=== PATIENT | male | born 1940 | race Caucasian/White ===

== ENCOUNTER → 2016-08-24 | Outpatient (REF) | payer MEDICARE | LOC: M SFHCPLAZ 09:49 | PROVIDERS: ATTEND Family Medicine | DX: E11.40 Type 2 diabetes mellitus with diabetic neuropathy, unspecified (principal) | CPT/HCPCS: 36415; 82043; 83036; G0463 ==

== ENCOUNTER 2016-10-12 22:12 | Inpatient (IN) | payer MEDICARE ==
[~2016-10-12] VITALS: Ht 172.7 cm; Wt 99.9 kg
[2016-10-12] MEDS ORDERED: NITROGLYCERIN 0.4 MG SUBL TABLET As Ordered ONE (22:31)
[2016-10-12] MEDS ORDERED: NITROGLYCERIN 2% OINT 1 GM *U/D* PKT TOP ONE (22:45)
[2016-10-12 22:51] LABS: BASO # 0.1 K/mm3 (0.0-0.2); BASO % 0.4 % (0.0-1.0); EOS # 0.6 K/mm3 (0.0-0.50); EOS % 3.7 % (0.0-3.0); LARGE UNSTAINED CELL # 0.4 K/mm3 (0.0-0.4); LYMPH # 5.1 K/mm3 (1.5-4.5); LYMPH % 31.3 % (24.0-44.0); MEAN CORPUSCULAR HEMOGLOBIN 31.7 pg (27.0-33.0); MEAN CORPUSCULAR VOLUME 99.1 fl (80.0-96.0); MONO # 0.8 K/mm3 (0.0-0.8); MONO % 5.2 % (0.0-5.0); NEUTROPHILS # 8.4 K/mm3 (1.8-7.7); NEUTROPHILS % 56.4 % (36.0-66.0); PLATELET COUNT, AUTOMATED 262 k/mm3 (150-450); RED CELL DISTRIBUTION WIDTH 12.4 % (11.5-14.5)
[2016-10-12 22:53] LABS: WHITE BLOOD COUNT 14.8 K/mm3 (4.0-10.0)
[2016-10-12 22:56] LABS: VENOUS BASE EXCESS -3.2 (-2.0-2.0); VENOUS O2 SATURATION 81.4 % (60.0-80.0); VENOUS PARTIAL PRESSURE CO2 68.5 mmHg (38.0-50.0); VENOUS PARTIAL PRESSURE O2 53.4 mmHg (30.0-50.0); VENOUS STANDARD HCO3 21.4 MEQ/L; VENOUS TOTAL CO2 28.6 MEQ/L (24.0-28.0)
[2016-10-12] MEDS: ALBUTEROL SULFATE 2.5 MG/0.5 ML INH NEB SOLN NEB PRN ×2 (22:58→22:59)
[2016-10-12 23:06] LABS: ALBUMIN 3.9 GM/DL (3.2-5.2); ALBUMIN/GLOBULIN RATIO 1.03 (1.00-1.93); BILIRUBIN,DIRECT 0.1 MG/DL (0.0-0.2); BILIRUBIN,TOTAL 0.3 MG/DL (0.2-1.0); CALCIUM LEVEL 9.3 MG/DL (8.8-10.2); CREATININE FOR GFR 1.74 MG/DL (0.70-1.30); GLOMERULAR FILTRATION RATE 40.7 (>42); POTASSIUM SERUM 4.5 MEQ/L (3.5-5.1); TOTAL PROTEIN 7.7 GM/DL (6.4-8.2)
[2016-10-12] MEDS ORDERED: NITROGLYCERIN 0.3 MG SUBL TAB SL STA (23:25)
[2016-10-13] MEDS ORDERED: methylPREDNISolone INJ 125 MG/2 ML VIAL (J2930) As Ordered ONE (00:09)
[2016-10-13] MEDS ORDERED: methylPREDNISolone INJ 125 MG/2 ML VIAL (J2930) IV ONE (00:15)
[2016-10-13] MEDS ORDERED: ALBUTEROL SULFATE 2.5 MG/0.5 ML INH NEB SOLN NEB PRN (00:30)
[2016-10-13] MEDS ORDERED: ONDANSETRON 4MG/2ML VIAL (J2405) IV PRN (00:30)
[2016-10-13] MEDS ORDERED: BISACODYL 10 MG SUPP PR PRN (00:30)
--- NOTE | 2016-10-13 00:40 | REPUSA ---
CLINICAL HISTORY: Shortness of breath. TECHNIQUE: Multiple axial CT images were obtained through the thorax without IV contrast material. COMMENTS: Mild cardiomegaly. Bilateral peribronchial interstitial thickening. Subsegmental atelectatic changes in the lingula. There is no evidence of pleural or parenchymal-based mass. There are no pleural effusions. There is n o evidence of hilar or mediastinal lymphadenopathy. The heart and great vessels are within normal castillo its. The visualized portions of the liver are of uniform attenuation without mass or defect. There is no i ntra or extrahepatic biliary ductal dilatation. The spleen is unremarkable. The visualized pancreas i s of normal contour and attenuation characteristics. There is no evidence of adrenal mass. The visual ized portions of the kidneys present no abnormalities. The bony structures are free of lytic or blastic lesions. Small sliding-type hernia. IMPRESSION: Bronchitis. Cardiomegaly. Small sliding-type hernia. Constipation. Thank you for your kind referral of this patient.
[2016-10-13] MEDS ORDERED: FUROSEMIDE 100 MG/10 ML VIAL (J1940) IV ONE (01:00)
[2016-10-13] MEDS ORDERED: GLUCAGON FOR INJ 1 MG VIAL (J1610) SC PRN (01:30)
[2016-10-13] MEDS ORDERED: GLUCOSE 4 GM CHEW TABLET PO PRN (01:30)
[2016-10-13] MEDS ORDERED: DEXTROSE 50% 50 ML SYRINGE IV PRN (01:30)
[2016-10-13] MEDS ORDERED: VITA50003 PO (01:51)
[2016-10-13] MEDS ORDERED: LISI-542 PO (01:51)
[2016-10-13] MEDS ORDERED: JANU100T PO (01:51)
[2016-10-13] MEDS ORDERED: ADV250INH INH (01:51)
[2016-10-13] MEDS ORDERED: PROA1AER INH (01:51)
[2016-10-13] MEDS ORDERED: METF1000 PO (01:51)
[2016-10-13] MEDS ORDERED: QUIN40TA5 PO (01:51)
[2016-10-13 02:00] VITALS: BP 134/69
[2016-10-13] MEDS: AUGMENTIN 875 MG TAB PO SCH ×3 (02:32→21:22)
[2016-10-13] MEDS: IPRATROPIUM 0.5MG/ALBUTEROL 2.5MG INH SOL UD 3ML (DUONEB)(J7620) NEB SCH ×3 (03:16→20:00)
[2016-10-13 06:00] VITALS: BP 128/60
[2016-10-13] MEDS: HEPARIN SOD (PORCINE) 5000 UNITS/ML VIAL SC SCH ×3 (06:06→21:23)
[2016-10-13] MEDS: BUDESONIDE 0.5 MG/2 ML INHALATION SUSPENSION INH SCH ×2 (07:56→22:17)
[2016-10-13] MEDS: FORMOTEROL FUMARATE 20 MCG/2 ML INHALATION SOLUTION (PERFOROMIST) INH SCH ×2 (07:56→22:17)
--- NOTE | 2016-10-13 08:14 | REP ---
Portable chest a single AP view the patient upright: Comparison is 10/03/2015. A faintly visible linear density inferiorly in the left lung compatible with discoid atelectasis versus scar, unchanged. Left lung is clear and unchanged. Cardiac size is normal for portable positioning. The patient is rotated slightly. The kristy, mediastinum, bony thorax are unremarkable. Impression: Minor atelectasis versus scar in the lingula, no interval change. Signed by Eleuterio Staton MD 10/13/2016 08:05 A
[2016-10-13] MEDS: PANTOPRAZOLE 40MG TAB (PROTONIX) PO SCH (08:18)
[2016-10-13] MEDS: HumaLOG INSULIN (NovoLOG) PER UNIT SC SCH ×4 (08:18→21:00)
[2016-10-13] MEDS: SENOKOT S TAB PO SCH ×2 (08:19→21:22)
[2016-10-13] MEDS: predniSONE 20 MG TAB PO SCH (08:19)
[2016-10-13] MEDS: LISINOPRIL 5 MG TAB PO SCH (08:19)
--- NOTE | 2016-10-13 09:09 | HPE ---
DATE OF ADMISSION: 10/13/2016 PRIMARY CARE PROVIDER: Dr. Faraz Aldana CHIEF COMPLAINT: Acute onset shortness of breath and chest tightness at around 7:00 p.m. in the evening. PAST MEDICAL HISTORY: 1. Chronic obstructive pulmonary disease (COPD). 2. Diabetes. 3. Gastroesophageal reflux disease. 4. Hypertension. 5. Rosacea. 6. Vitamin D deficiency. 7. Obesity. 8. Chronic kidney disease Stage III. 9. Diabetic neuropathy. HISTORY OF PRESENT ILLNESS: This is a 76-year-old male who was in his usual state of health until this evening. After dinner while he was doing some paperwork he suddenly felt acute shortness of breath and chest tightness behind the sternum. He became very anxious and started hyperventilating so he got into his car on his way to urgent care and stopped at a store en route to get a drink; however, could not make it to the store. He was standing beside his car in the car park hyperventilating. He met one of his acquaintances and he could hardly talk to him so an ambulance was called and he was brought to the emergency room. He did say he had a similar episode two days ago that also started after dinner with sensation of chest tightness and discomfort just behind the sternum followed by shortness of breath. He did take his albuterol inhalers that night which helped, however, he had an uncomfortable night and was having acid reflux and chest discomfort when he was lying down so he spent most of the night in a semi-reclined position. However, the next morning when he woke up, he was fine without any complaints until he had this episode today. The patient has stated that over the past two weeks he has done drastic dietary modification in order to try and lose some weight. He has been eating more of beans and vegetables and he feels that he has been having more of gas and acid reflux. In the emergency department (ED) on presentation, he had a VBG done which showed a pH of 7.20, pCO2 of 68, pO2 of 53. He was hypertensive with a blood pressure of 180/90 and tachycardic with a pulse of 115. He was given two sublingual nitroglycerin without much improvement. After that, he got three nebulizer treatments along with a nitro patch which improved his symptoms dramatically. The patient feels it is the nebulizers which improved his symptoms. At present on my interview, the patient was comfortable, however, was sitting on the side of the bed as he felt that was helping him breathe better. He was talking in full sentences. He denied any chest discomfort or any shortness of breath at this point. He denies any cough or phlegm. He denies any abdominal pain, nausea or vomiting. He denied any fever or chills or any cold or upper respiratory infection like symptoms. PAST SURGICAL HISTORY: Cardiac catheterization about 7 to 8 years ago which did not show any obstruction. ALLERGIES: - ASPIRIN SOCIAL HISTORY: The patient drinks one to two glasses of wine per day. Former smoker, quit more than 10 years ago. Does not abuse any recreational drugs. HOME MEDICATIONS: - Centrum Silver one tablet daily - glipizide 5 mg daily - Januvia 100 mg daily - metformin 1000 mg twice a day - quinapril 40 mg once a day - vitamin D 50,000 units one capsule once a week - ProAir HFA two puffs every 4 hours as needed - Advair Diskus 250/50 one inhalation twice a day - lisinopril 5 mg daily FAMILY HISTORY: Father of prostate cancer. Mother of stroke. Brother alive, unknown medical history. REVIEW OF SYSTEMS: All ten point review of systems are negative except those mentioned in history of present illness. PHYSICAL EXAMINATION: VITAL SIGNS: Blood pressure 144/74. Pulse 102. Respiratory rate 20. Pulse oximetry 92% with 2 liters nasal cannula. Temperature 96.8. GENERAL: Patient awake, alert and oriented times three, sitting up at the edge of the bed in no acute distress. HEENT: Normocephalic, atraumatic. Moist mucous membranes. Anicteric eyes. CHEST: Distant breath sounds. No wheezing or rhonchi. CARDIOVASCULAR: S1, S2, regular. No rub, murmur or gallop. ABDOMEN: Obese, soft, nontender. Bowel sounds present. EXTREMITIES: 1+ bipedal edema. LABORATORY DATA: WBC 14.8, hemoglobin 14.4, and platelets 262. Sodium 142, potassium 4.5, chloride 108, bicarbonate 26, BUN 35, creatinine 1.74, glucose 227, calcium 9.3. Liver function tests are normal. BNP 63.4. TSH 3.2. CT of chest shows bronchitis, cardiomegaly, sliding type hernia, and constipation. ASSESSMENT: This is a 76-year-old male admitted for acute exacerbation of chronic obstructive pulmonary disease, acute bronchitis and possible acute gastroesophageal reflux. PLAN: 1. For COPD exacerbation, will continue with nebulizers and oral steroids. 2. For acute bronchitis, will continue with Augmentin. 3. Possible acute gastroesophageal reflux and CT scan shows has a small sliding type of hernia and patient may have recurrent episodes of acute dyspnea precipitated due to active bronchospasm that might be precipitated by acid reflux. Will continue the patient on pantoprazole twice a day. 4. Diabetes. Will continue with glipizide. Will hold metformin because of chronic kidney disease (CKD). Will monitor finger sticks. 5. CKD Stage III. Will continue to monitor. 6. Deep vein thrombosis prophylaxis has been ordered. 7. Gastrointestinal prophylaxis has been ordered.
[2016-10-13 09:40] LABS: BASO % 0.2 % (0.0-1.0); EOS % 0.2 % (0.0-3.0); LARGE UNSTAINED CELL % 0.3 % (0.0-4.0); LYMPH # 0.6 K/mm3 (1.5-4.5); LYMPH % 5.5 % (24.0-44.0); MEAN CORPUSCULAR HEMOGLOBIN 31.8 pg (27.0-33.0); MEAN CORPUSCULAR HGB CONC 32.2 g/dl (32.0-36.5); MEAN CORPUSCULAR VOLUME 98.9 fl (80.0-96.0); MONO # 0.1 K/mm3 (0.0-0.8); MONO % 1.2 % (0.0-5.0); NEUTROPHILS # 9.2 K/mm3 (1.8-7.7); NEUTROPHILS % 92.6 % (36.0-66.0); PLATELET COUNT, AUTOMATED 225 k/mm3 (150-450); RED CELL DISTRIBUTION WIDTH 12.4 % (11.5-14.5); WHITE BLOOD COUNT 9.9 K/mm3 (4.0-10.0)
[2016-10-13 09:51] LABS: ALBUMIN 3.8 GM/DL (3.2-5.2); ALBUMIN/GLOBULIN RATIO 0.97 (1.00-1.93); BILIRUBIN,TOTAL 0.3 MG/DL (0.2-1.0); CALCIUM LEVEL 9.6 MG/DL (8.8-10.2); CREATININE FOR GFR 2.08 MG/DL (0.70-1.30); GLOMERULAR FILTRATION RATE 33.1 (>42); POTASSIUM SERUM 4.9 MEQ/L (3.5-5.1); TOTAL PROTEIN 7.7 GM/DL (6.4-8.2)
--- NOTE | 2016-10-13 11:20 | IPNPDOC ---
Subjective Date Seen The patient was seen on 10/13/16. Subjective Chief Complaint/HPI Pt without concerns. He feels his resp status is close to baseline. He denies cardiac symptoms this morning. Denies CP/ jaw, back, arm, shoulder pain. Per his HPI and confirmed with pt 2 days ago episode of chest tightness/discomfort assoc with SOB. He assoc with this acid reflux slept in his recliner and woke the following day without symptoms. General: Denies: Fatigue Constitutional: Denies: Chills, Fever Pulmonary: Denies: Cough, Dyspnea Cardiovascular: Denies: Chest Pain, Palpitations Gastrointestinal: Denies: Diarrhea, Nausea, Vomiting Psych: Reports: Mood Normal Objective Physical Examination General Exam: Positive: Alert, No Acute Distress ENT Exam: Positive: Mucous membr. moist/pink Chest Exam: Positive: Clear to auscultation, Normal air movement Heart Exam: Positive: Normal S1, Normal S2, Rate Normal Abdomen Exam: Positive: Normal bowel sounds, Soft, Negative: Tenderness Extremity Exam: Positive: Edema (1 mm pretibial pitting edema) Assessment /Plan Problems (1) Elevated troponin I level Status: Acute Response to Treatment: Worse Problem Specific Plan: Monitor Clinically Problem Text: Trop I 0.02 on admission, 1.00 at 6 AM, ordered repeat now, pt asymptomatic. Allergy listed to ASA, on Heparin 5000 units q8h, now, lisinopril 5 mg, statin. on O2. Transfer to PCU for telemetry, EKG this morning without acute changes, similar c/w last night (2) CKD (chronic kidney disease) stage 3, GFR 30-59 ml/min Status: Chronic Response to Treatment: Stable Problem Specific Plan: Monitor Clinically Problem Text: 2011, Scr 2 appears to be at baseline. (3) COPD exacerbation Status: Acute Response to Treatment: Improving Problem Specific Plan: Monitor Clinically Problem Text: Pt on prednisone 40 mg, Augmentin, resp status stable. Plan/VTE VTE Prophylaxis Ordered?: Yes VS, I&O, 24H, Fishbone Vital Signs/I&O Vital Signs Date Time Temp Pulse Resp B/P Pulse Ox O2 Delivery O2 Flow Rate FiO2 10/13/16 08:19 128/60 10/13/16 06:00 98.8 88 18 93 Nasal Cannula 2.0 I&O- Last 24 Hours up to 6 AM 10/13/16 06:00 Intake Total 540 ml Output Total 0 ml Balance 540 ml Laboratory Data 24H LABS Laboratory Tests 2 10/12/16 22:25: Activated Partial Thromboplast Time 26.8, Aspartate Amino Transf (AST/SGOT) 17, Alanine Aminotransferase (ALT/SGPT) 27, Alkaline Phosphatase 77, Total Bilirubin 0.3, Direct Bilirubin 0.1, Albumin 3.9, Albumin/Globulin Ratio 1.03, Anion Gap 8, B-Type Natriuretic Peptide 63.4, White Blood Count 14.8H, Red Blood Count 4.55, Hemoglobin 14.4, Hematocrit 45.1, Mean Corpuscular Volume 99.1H, Mean Corpuscular Hemoglobin 31.7, Mean Corpuscular Hemoglobin Concent 32.0, Red Cell Distribution Width 12.4, Platelet Count 262, Neutrophils (%) ( Auto) 56.4, Lymphocytes (%) (Auto) 31.3, Monocytes (%) (Auto) 5.2H, Eosinophils (%) (Auto) 3.7H, Basophils (%) (Auto) 0.4, Neutrophils # (Auto) 8.4H, Lymphocytes # (Auto) 5.1H, Monocytes # (Auto) 0.8, Eosinophils # (Auto) 0.6H, Basophils # (Auto) 0.1, Calcium Level 9.3, Creatine Kinase MB 5.1H, Creatine Kinase MB Relative Index 2.75, Glomerular Filtration Rate 40.7L, Large Unclassified Cells # 0.4, Large Unclassified Cells % 3.0, Thyroid Stimulating Hormone (TSH) 3.280, Total Creatine Kinase 185, Total Protein 7.7, Troponin I 0.02 10/12/16 22:50: Blood Gas Bicarbonate Standard 21.4, Venous Blood Base Excess -3.2L, Venous Blood pH 7.205L, Venous Blood Partial Pressure CO2 68.5H, Venous Blood Partial Pressure O2 53.4H, Venous Blood Total Carbon Dioxide 28.6H, Venous Blood HCO3 26.5, Venous Blood Oxygen Saturation 81.4H 10/13/16 05:58: White Blood Count 9.9, Red Blood Count 4.38, Hemoglobin 13.9L, Hematocrit 43.3, Mean Corpuscular Volume 98.9H, Mean Corpuscular Hemoglobin 31.8, Mean Corpuscular Hemoglobin Concent 32.2, Red Cell Distribution Width 12.4, Platelet Count 225, Neutrophils (%) (Auto) 92.6H, Lymphocytes (%) (Auto) 5.5L, Monocytes (%) (Auto) 1.2, Eosinophils (%) (Auto) 0.2, Basophils (%) (Auto) 0.2, Neutrophils # (Auto) 9.2H, Lymphocytes # (Auto) 0.6L, Monocytes # (Auto) 0.1, Eosinophils # (Auto) 0.0, Basophils # (Auto) 0.0, Large Unclassified Cells # 0.0 , Large Unclassified Cells % 0.3 10/13/16 06:00: Aspartate Amino Transf (AST/SGOT) 22, Alanine Aminotransferase (ALT/SGPT) 27, Alkaline Phosphatase 67, Total Bilirubin 0.3, Albumin 3.8, Albumin/Globulin Ratio 0.97L, Anion Gap 13, Calcium Level 9.6, Creatine Kinase MB 7.6H, Creatine Kinase MB Relative Index 3.72, Glomerular Filtration Rate 33.1L, Total Creatine Kinase 204, Total Protein 7.7, Troponin I 1.00#H, Blood Urea Nitrogen 38H, Creatinine 2.08H, Sodium Level 140, Potassium Level 4.9, Chloride Level 104, Carbon Dioxide Level 23 10/13/16 06:39: Bedside Glucose (Misc Panel) 310H CBC/BMP Laboratory Tests 10/12/16 22:25 Red Blood Count 4.55, Mean Corpuscular Volume 99.1 H, Mean Corpuscular Hemoglobin 31.7, Mean Corpuscular Hemoglobin Concent 32.0, Red Cell Distribution Width 12.4, Neutrophils (%) (Auto) 56.4, Lymphocytes (%) (Auto) 31.3, Monocytes (%) (Auto) 5.2 H, Eosinophils (%) (Auto) 3.7 H, Basophils (%) ( Auto) 0.4, Neutrophils # (Auto) 8.4 H, Lymphocytes # (Auto) 5.1 H, Monocytes # ( Auto) 0.8, Eosinophils # (Auto) 0.6 H, Basophils # (Auto) 0.1 10/13/16 05:58 Red Blood Count 4.38, Mean Corpuscular Volume 98.9 H, Mean Corpuscular Hemoglobin 31.8, Mean Corpuscular Hemoglobin Concent 32.2, Red Cell Distribution Width 12.4, Neutrophils (%) (Auto) 92.6 H, Lymphocytes (%) (Auto) 5.5 L, Monocytes (%) (Auto) 1.2, Eosinophils (%) (Auto) 0.2, Basophils (%) (Auto ) 0.2, Neutrophils # (Auto) 9.2 H, Lymphocytes # (Auto) 0.6 L, Monocytes # (Auto ) 0.1, Eosinophils # (Auto) 0.0, Basophils # (Auto) 0.0 10/13/16 06:00 Calcium Level 9.6, Aspartate Amino Transf (AST/SGOT) 22, Alanine Aminotransferase (ALT/SGPT) 27, Total Creatine Kinase 204, Alkaline Phosphatase 67, Total Bilirubin 0.3, Total Protein 7.7, Albumin 3.8 LUZ MARIA LIU PA-C Oct 13, 2016 11:19
[2016-10-13 12:45] VITALS: BP 135/63
--- NOTE | 2016-10-13 15:23 | ECGEPIP ---
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 Electronically Signed On 10-13-2016 15:23:49 EDT by Steve Hull
[2016-10-13 16:00] VITALS: BP 126/58
--- NOTE | 2016-10-13 18:33 | ECGEPIP ---
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
[2016-10-13 20:00] VITALS: BP 127/60
[2016-10-14] VITALS: BP 116/57
[2016-10-14] MEDS: IPRATROPIUM 0.5MG/ALBUTEROL 2.5MG INH SOL UD 3ML (DUONEB)(J7620) NEB SCH ×4 (02:00→20:00)
[2016-10-14 04:00] VITALS: BP 134/63
[2016-10-14 04:50] LABS: BASO % 0.2 % (0.0-1.0); EOS % 0.4 % (0.0-3.0); LARGE UNSTAINED CELL # 0.2 K/mm3 (0.0-0.4); LARGE UNSTAINED CELL % 1.7 % (0.0-4.0); LYMPH % 10.2 % (24.0-44.0); MEAN CORPUSCULAR HEMOGLOBIN 31.8 pg (27.0-33.0); MEAN CORPUSCULAR VOLUME 96.2 fl (80.0-96.0); MONO # 0.6 K/mm3 (0.0-0.8); MONO % 6.1 % (0.0-5.0); NEUTROPHILS % 81.5 % (36.0-66.0); PLATELET COUNT, AUTOMATED 209 k/mm3 (150-450); RED CELL DISTRIBUTION WIDTH 12.4 % (11.5-14.5); WHITE BLOOD COUNT 9.8 K/mm3 (4.0-10.0)
[2016-10-14 05:10] LABS: CALCIUM LEVEL 8.8 MG/DL (8.8-10.2); CREATININE FOR GFR 2.04 MG/DL (0.70-1.30); GLOMERULAR FILTRATION RATE 33.9 (>42); POTASSIUM SERUM 4.6 MEQ/L (3.5-5.1)
[2016-10-14] MEDS: HEPARIN SOD (PORCINE) 5000 UNITS/ML VIAL SC SCH ×3 (05:31→21:08)
[2016-10-14] MEDS: HumaLOG INSULIN (NovoLOG) PER UNIT SC SCH ×4 (06:52→21:08)
[2016-10-14 08:00] VITALS: BP 125/58
[2016-10-14] MEDS: BUDESONIDE 0.5 MG/2 ML INHALATION SUSPENSION INH SCH ×2 (08:06→20:53)
[2016-10-14] MEDS: FORMOTEROL FUMARATE 20 MCG/2 ML INHALATION SOLUTION (PERFOROMIST) INH SCH ×2 (08:06→20:53)
[2016-10-14] MEDS: AUGMENTIN 875 MG TAB PO SCH ×2 (08:12→21:08)
[2016-10-14] MEDS: LISINOPRIL 5 MG TAB PO SCH (08:13)
[2016-10-14] MEDS: PANTOPRAZOLE 40MG TAB (PROTONIX) PO SCH (08:13)
[2016-10-14] MEDS: predniSONE 20 MG TAB PO SCH (08:13)
[2016-10-14] MEDS: SENOKOT S TAB PO SCH ×2 (08:13→21:08)
--- NOTE | 2016-10-14 09:35 | IPNPDOC ---
Subjective Date Seen The patient was seen on 10/14/16. Subjective Chief Complaint/HPI Pt this morning without new concerns. He is eager to get home. He is moving about his room without difficulty. He denies CP, jaw pain, shoulder pain. Breathing is better. He has been weaned off O2. General: Denies: Fatigue Constitutional: Denies: Chills, Fever Pulmonary: Reports: Dyspnea, Denies: Cough Cardiovascular: Denies: Chest Pain, Palpitations Gastrointestinal: Denies: Diarrhea, Nausea, Vomiting Psych: Reports: Mood Normal Objective Physical Examination General Exam: Positive: Alert, No Acute Distress ENT Exam: Positive: Mucous membr. moist/pink Chest Exam: Positive: Clear to auscultation, Normal air movement Heart Exam: Positive: Normal S1, Normal S2, Rate Normal Abdomen Exam: Positive: Normal bowel sounds, Soft, Negative: Tenderness Extremity Exam: Positive: Edema (1 mm pretibial pitting edema) Assessment /Plan Problems (1) Elevated troponin I level Status: Acute Response to Treatment: Worse Problem Specific Plan: Monitor Clinically Problem Text: 10/16 Trop this morning 1.28, CKMB 8.1, Cont with Heparin, will add Plavix per Dr Goldstein who will see the patient later. 10/13 Trop I 0.02 on admission, 1.00 at 6 AM, ordered repeat now, pt asymptomatic. Allergy listed to ASA, on Heparin 5000 units q8h, now, lisinopril 5 mg, statin. on O2. Transfer to PCU for telemetry, EKG this morning without acute changes, similar c/w last night (2) CKD (chronic kidney disease) stage 3, GFR 30-59 ml/min Status: Chronic Response to Treatment: Stable Problem Specific Plan: Monitor Clinically Problem Text: 2010, Scr 2 appears to be at baseline. (3) COPD exacerbation Status: Acute Response to Treatment: Improving Problem Specific Plan: Monitor Clinically Problem Text: Pt on prednisone 40 mg, Augmentin, resp status stable. Plan/VTE VTE Prophylaxis Ordered?: Yes VS, I&O, 24H, Fishbone Vital Signs/I&O Vital Signs Date Time Temp Pulse Resp B/P Pulse Ox O2 Delivery O2 Flow Rate FiO2 10/14/16 08:13 125/58 10/14/16 08:00 Room Air 10/14/16 08:00 96.7 73 20 94 10/13/16 09:00 2.0 I&O- Last 24 Hours up to 6 AM 10/14/16 06:00 Intake Total 900 ml Output Total 900 ml Balance 0 ml Laboratory Data 24H LABS Laboratory Tests 2 10/13/16 11:20: Creatine Kinase MB 7.1H, Creatine Kinase MB Relative Index 3.62, Total Creatine Kinase 196, Troponin I 1.02H 10/13/16 11:44: Bedside Glucose (Misc Panel) 388H 10/13/16 17:24: Creatine Kinase MB 7.4H, Creatine Kinase MB Relative Index 2.49, Total Creatine Kinase 297, Troponin I 1.00H 10/13/16 17:33: Bedside Glucose (Misc Panel) 256H 10/13/16 21:17: Bedside Glucose (Misc Panel) 224H 10/13/16 23:34: Creatine Kinase MB 7.3H, Creatine Kinase MB Relative Index 1.37, Total Creatine Kinase 531#H, Troponin I 1.04H 10/14/16 04:26: Creatine Kinase MB 8.1H, Creatine Kinase MB Relative Index 1.52, Total Creatine Kinase 532H, Troponin I 1.28#H, Anion Gap 8, White Blood Count 9.8, Red Blood Count 4.38, Hemoglobin 13.9L, Hematocrit 42.1, Mean Corpuscular Volume 96.2H, Mean Corpuscular Hemoglobin 31.8, Mean Corpuscular Hemoglobin Concent 33.0, Red Cell Distribution Width 12.4, Platelet Count 209, Neutrophils (%) (Auto) 81.5H, Lymphocytes (%) (Auto) 10.2L, Monocytes (%) (Auto) 6.1H, Eosinophils (%) (Auto) 0.4, Basophils (%) (Auto) 0.2, Neutrophils # (Auto) 8.0H, Lymphocytes # (Auto) 1.0L, Monocytes # (Auto) 0.6, Eosinophils # (Auto) 0.0, Basophils # (Auto) 0.0, Blood Urea Nitrogen 48H, Creatinine 2.04H, Sodium Level 140, Potassium Level 4.6 , Chloride Level 106, Carbon Dioxide Level 26, Calcium Level 8.8, Glomerular Filtration Rate 33.9L, Large Unclassified Cells # 0.2, Large Unclassified Cells % 1.7 10/14/16 06:46: Bedside Glucose (Misc Panel) 202H CBC/BMP Laboratory Tests 10/14/16 04:26 Calcium Level 8.8, Total Creatine Kinase 532 H, Red Blood Count 4.38, Mean Corpuscular Volume 96.2 H, Mean Corpuscular Hemoglobin 31.8, Mean Corpuscular Hemoglobin Concent 33.0, Red Cell Distribution Width 12.4, Neutrophils (%) (Auto ) 81.5 H, Lymphocytes (%) (Auto) 10.2 L, Monocytes (%) (Auto) 6.1 H, Eosinophils (%) (Auto) 0.4, Basophils (%) (Auto) 0.2, Neutrophils # (Auto) 8.0 H , Lymphocytes # (Auto) 1.0 L, Monocytes # (Auto) 0.6, Eosinophils # (Auto) 0.0, Basophils # (Auto) 0.0 LUZ MARIA LIU PA-C Oct 14, 2016 09:35
[2016-10-14] MEDS: CLOPIDOGREL 75 MG TAB PO SCH (10:26)
--- NOTE | 2016-10-14 17:57 | ECHO ---
DATE OF PROCEDURE: 10/14/2016 AGE: 75 GENDER: Male HEIGHT: 68 inches WEIGHT: 222 pounds BODY SURFACE AREA: 2.14 m2. Inpatient intensive care unit (ICU) Room 3204. REFERRING PHYSICIAN: Dr. Trinh Aldana. INDICATION: Dyspnea. MEASUREMENTS: 2-D measurements: RV - 4.4 cm LV - 5.5 cm Septum 1.3 cm Posterior wall 1.3 cm Aortic root 3.6 cm LA - 3.4 cm LVEF- 60-65% Doppler measurements: AV - 1.7 m/sec LVOT - 1.1 m/sec LVOT diameter 2.1 cm MVE - 59 A- 74 E/E ratio 0.8 Early mitral deceleration time: 264 m/s E-Prime 5 A-Prime 8 E/E Prime ratio 11.6 PV - 1.0 m/sec Pulmonary artery acceleration time 109 milliseconds RVSP - 35 mmHg IVC - 1.5 cm COMMENTS: Normal sinus rhythm without intraventricular conduction disturbance. Technically challenging study in light of the patient's body habitus but diagnostically useful information was still obtained. Moderately dilated left atrium with left ventricle upper limits of normal in size. The right ventricle is at least mildly dilated as was the right atrium. Left ventricle (LV) wall thickness was mildly increased symmetrically on real time imaging from the parasternal and apical projections, wall motion was symmetrical and normal to hyperkinetic. Normal appearing mitral valvular apparatus and leaflet excursion with no posterior systolic buckling. Three equal size aortic cusps with mild to moderate thickening of cusp edges but adequate cusp separation. Normal aortic root size. No apparent intracardiac mass or pericardial effusion. Color flow Doppler study taken from the parasternal and apical projection showed very mild tricuspid, but no apparent aortic or mitral insufficiency. Guided continuous wave Doppler of his aortic valve showed a normal peak systolic velocity against left ventricle (LV) outflow tract obstruction. Pulsed and continuous wave Doppler of his LV inflow tract taken from the apical four-chamber projection showed normal diastolic filling velocities against mitral stenosis. There was more prominently diastolic/atrial dependent filling pattern. Diastolic dysfunction was further confirmed by a prolonged early mitral deceleration time and tissue Doppler of his mitral annulus. Current estimated mean left atrial pressure however was upper limits of normal at 12-14 mmHg. Pulsed and continuous wave Doppler of his pulmonary trunk showed a normal peak systolic velocity against right ventricle (RV) outflow tract obstruction. His pulmonary artery acceleration time was slightly abbreviated suggestive of a elevated pulmonary vascular resistance. Guided continuous wave Doppler of his tricuspid valve allowed our estimation of his right ventricular systolic pressure (mildly increased). His inferior vena cava was of normal size against an elevated central venous pressure. CONCLUSIONS: Technically difficult study. Mild concentric left ventricular hypertrophy with preserved systolic function. Moderately dilated left atrium with Doppler evidence of an impairment of LV diastolic function but current estimated mean left atrial pressure upper limits of normal. Mildly dilated right ventricle with Doppler evidence of at least mild pulmonary hypertension. Mildly dilated right atrium but normal inferior vena cava size. Against a currently elevated central venous pressure. Moderate aortic valvular sclerosis without functional valvular abnormality.
[2016-10-14] MEDS ORDERED: CLOPIDOGREL 75 MG TAB PO ONE (19:00)
--- NOTE | 2016-10-14 19:30 | CR ---
DATE OF CONSULTATION: 10/14/2016 REFERRING PROVIDER: TIMO Lam INDICATION: Elevated troponin. HISTORY OF PRESENT ILLNESS: Mr. MANNING was previously unknown to me. He is very pleasant 76-year-old man who came to [facility] on 10/12/2016. On the particular day, he developed rather sudden onset of symptoms that included retrosternal chest pressure, it was localized to one small area behind lower sternum without any radiation but with associated severe dyspnea. He initially waited about an hour or so but when the symptoms were not subsiding, quite to the contrary, he drove himself to the Urgent Care that was closed. He then wanted to drive to [facility] but on the way there he got so dizzy and lightheaded that he felt he was not able to drive. Consequently, he pulled over to the parking lot and by coincidence was seen by one of the friends of his son and when he came over and saw the patient was in distress, the ambulance was called and he was brought to [facility] Emergency Room for further evaluation. On arrival there, he was quite hypertensive and tachycardic. He received nitroglycerin en route to the hospital, which brought to some but certainly not complete relief. Eventually though, his symptoms markedly improved after administration of some bronchodilators and more NTG and Solu-Medrol. Initially, he was treated as chronic obstructive pulmonary disease (COPD) exacerbation but then his troponin became mildly elevated and the level continues to rise. I was asked by TIMO Lam to see the patient in consultation. At the time of my dictation, the patient is comfortable. He cannot exactly state how long his initial chest discomfort lasted but it clearly was at least an hour or two. I reviewed the hospital record and the initial ECG from emergency room reveals approximately [address]-segment depression in inferior leads, it is from 10/12/2016 at 2240 hours. It is relatively poor quality EKG but I think that the ST-segment depression is quite convincing. The second one at 2244 hours is already less prominent and the following day his ST-segment is basically back to normal. The patient tells me that since resolution of this symptoms, there has been no recurrence and he has been feeling well. The patient does not have any history of coronary artery disease. He underwent cardiac catheterization approximately 15 years ago and reportedly had some minor blockage in one of the arteries. He did have a nuclear stress test in our office in September 2014. He was able to exercise only for 6 METs, but the perfusion images were normal and left ventricle ejection fraction was calculated at 59%. At his baseline, he is quite active. He tells me that he quite frequently walks on a treadmill at 2.5 miles an hour with 3% incline and has no trouble doing so for about 45 minutes. PAST MEDICAL HISTORY 1. Type 2 diabetes of many years. 2. Obesity. 3. COPD 4. Gastroesophageal reflux disease (GERD). 5. Hypertension. 6. Chronic renal insufficiency stage III. 7. Diabetic neuropathy. SURGICAL HISTORY: Negative but for cardiac catheterization. ALLERGY: He reports allergy to ASPIRIN that is causing anaphylaxis. SOCIAL HISTORY: The patient is . He was a total of three times and had three children of his own, several step children. He does have one or two drinks a day, quit smoking 20 years ago but smoked intermittently for about three decades and occasionally very heavy. No history of drug use. OUTPATIENT MEDICATIONS: - albuterol as needed - vitamin D - quinapril 40 mg a day - metformin 1 gram twice a day - Januvia 100 mg a day - ProAir two puffs every 4 hours as needed - Advair Diskus FAMILY HISTORY: Negative for coronary artery disease in first-degree relatives. His father of prostate cancer and mother had stroke. REVIEW OF SYSTEMS: He denies any recent fever, chills, nausea, vomiting, diarrhea. He denies any prior chest discomfort. No history of syncope. No history of palpitations. No abdominal pain, nausea or vomiting. No peripheral edema. No skin lesions. No history of gastrointestinal or other bleeding. PHYSICAL EXAMINATION: Mr. lBanco is an elderly man who appears actually quite younger than his calendar age. Blood pressure 125/58, heart rate is in 60 and 70s. He is afebrile. Saturation is 94% on room air. His fluid balance is approximately equal. His weight is 101.7 kg. He is alert and oriented and appropriate. His jugular venous pulse is not elevated. Lungs are clear to auscultation with good air movement. I do not appreciate any wheezes or crackles. Heart exam shows somewhat distant heart sound consistent with his obesity. Precordial impulse is difficult to estimate. I do not appreciate any gallop or rub. There is murmur at the aortic valve area approximately 1/6 intensity and second aortic sound is clearly distinct. Abdomen is obese but soft and nontender. There is no peripheral edema. Peripheral pulses are palpable. Neurologically, he is intact. LABORATORY: As of this morning, basic metabolic panel reveals sodium 140, potassium 4.6, BUN 48, creatinine 2.0 and glucose 201. He has several sets of cardiac enzymes with negative relative index but the troponin continues to increase. On presentation the initial set was completely negative. The second one was 1.0, then hovered approximately the same but the last one at noon today was 1.43. ECG, as per history of present illness. Chest x-ray does not reveal congestive heart failure and no obvious infiltrate. There is borderline cardiomegaly. CT of the chest is unremarkable as regards his case ASSESSMENT/PLAN: Mr. Blanco is a 76-year-old man who does not have a history of confirmed obstructive coronary artery disease. He presented with fairly sudden onset of chest discomfort associated with severe shortness of breath that persisted at least an hour and probably longer and eventually subsided after he received several medications that included nitroglycerin and steroids and bronchodilators. He did have initial subtle ischemia abnormalities on EKG and developed elevated troponin. In my opinion, the presentation is consistent with acute coronary syndrome, and we should treat him as such. It is approximately 48 hours in the onset of symptoms so I am not convinced that administration of full anticoagulation is justified, especially considering that he has not had any recurrence of symptoms. He has been receiving deep vein thrombosis (DVT) prophylactic dose of heparin. He also received Plavix. I do not think that he has to receive the full loading dose, but considering that the presentation seems rather convincing to me, I am going to give him additional 75 mg tonight. Otherwise, I would continue his remaining medications. He was taken off metformin due to renal insufficiency, and he is not receiving beta blockers I believe appropriately because of underlying lung disease and also the fact that he is relatively bradycardic. I talked to the patient about the choices of invasive strategy versus conservative strategy, and we will reopen this question tomorrow. My preference would be to keep him until Monday and transfer him for cardiac catheterization. I will add statin to his medication regimen. MTDD
[2016-10-14 20:00] VITALS: BP 135/63
[2016-10-14] MEDS: ATORVASTATIN 20 MG TAB PO SCH (21:08)
[2016-10-15] VITALS (7 sets, daily range): BP systolic 106–145; BP diastolic 54–63
[2016-10-15] MEDS: IPRATROPIUM 0.5MG/ALBUTEROL 2.5MG INH SOL UD 3ML (DUONEB)(J7620) NEB SCH ×4 (01:18→20:00)
[2016-10-15 04:42] LABS: BASO % 0.3 % (0.0-1.0); EOS % 0.5 % (0.0-3.0); LARGE UNSTAINED CELL # 0.2 K/mm3 (0.0-0.4); LARGE UNSTAINED CELL % 1.7 % (0.0-4.0); LYMPH # 1.8 K/mm3 (1.5-4.5); LYMPH % 18.8 % (24.0-44.0); MEAN CORPUSCULAR HEMOGLOBIN 32.2 pg (27.0-33.0); MEAN CORPUSCULAR HGB CONC 33.2 g/dl (32.0-36.5); MONO # 0.5 K/mm3 (0.0-0.8); MONO % 5.1 % (0.0-5.0); NEUTROPHILS # 7.1 K/mm3 (1.8-7.7); NEUTROPHILS % 73.5 % (36.0-66.0); PLATELET COUNT, AUTOMATED 221 k/mm3 (150-450); RED CELL DISTRIBUTION WIDTH 12.3 % (11.5-14.5); WHITE BLOOD COUNT 9.6 K/mm3 (4.0-10.0)
[2016-10-15 05:05] LABS: CALCIUM LEVEL 8.9 MG/DL (8.8-10.2); CREATININE FOR GFR 1.91 MG/DL (0.70-1.30); GLOMERULAR FILTRATION RATE 36.6 (>42); POTASSIUM SERUM 4.4 MEQ/L (3.5-5.1)
[2016-10-15] MEDS: HEPARIN SOD (PORCINE) 5000 UNITS/ML VIAL SC SCH ×3 (05:25→21:10)
[2016-10-15] MEDS: FORMOTEROL FUMARATE 20 MCG/2 ML INHALATION SOLUTION (PERFOROMIST) INH SCH ×2 (08:07→20:55)
[2016-10-15] MEDS: BUDESONIDE 0.5 MG/2 ML INHALATION SUSPENSION INH SCH ×2 (08:07→20:55)
[2016-10-15] MEDS: HumaLOG INSULIN (NovoLOG) PER UNIT SC SCH ×4 (09:07→21:09)
[2016-10-15] MEDS: predniSONE 20 MG TAB PO SCH (09:08)
[2016-10-15] MEDS: PANTOPRAZOLE 40MG TAB (PROTONIX) PO SCH (09:08)
[2016-10-15] MEDS: SENOKOT S TAB PO SCH ×2 (09:08→21:09)
[2016-10-15] MEDS: CLOPIDOGREL 75 MG TAB PO SCH (09:08)
[2016-10-15] MEDS: AUGMENTIN 875 MG TAB PO SCH ×2 (09:08→21:08)
[2016-10-15] MEDS: LISINOPRIL 5 MG TAB PO SCH (09:09)
--- NOTE | 2016-10-15 10:47 | IPN ---
DATE: 10/15/2016 Mr. Blanco did not have any events overnight. He remains in sinus rhythm with occasional PVCs. He denies any recurrence of chest discomfort or shortness of breath. Vital signs this morning, blood pressure 129/58, heart rate is mid 50s and 60s. He is afebrile. Saturation is 96% on room air. Fluid balance yesterday was slightly positive. Documented weight is 100.6 kg. He is alert and oriented appropriate. His jugular venous pulse (JVP) is not elevated. Lungs are clear to auscultation. Heart exam reveals regular rhythm without gallop or rub, and there is very faint murmur at the aortic valve area. Abdomen is obese but soft. There is no peripheral edema. Neurologically, he is intact. Laboratory monte: Hemoglobin is 13.9, hematocrit 41.8, platelet count 221,000. Basic metabolic panel: Potassium 4.4, BUN 46, creatinine 1.9 and glucose 197. His CK is still elevated with negative relative index. His troponin this morning was 1.43. which indicates essentially flat number over the last three draws. ASSESSMENT AND PLAN: Mr. Blanco is a 76-year-old man who has a remote history of coronary angiogram that revealed very marginal coronary artery disease about 15 years ago and negative nuclear stress test a little more than 2 years ago, but he is type 2 diabetic and presented with chest discomfort with associated ST-segment abnormalities and shortness of breath. His symptoms resolved, but he has troponin elevation in the range that in my opinion is diagnostic for acute coronary syndrome and [id number] myocardial infarction. He has severe allergy to aspirin so has been on Plavix. He is only on deep venous thrombosis (DVT) prophylactic dose of Lovenox as the diagnosis was made only after more than 48 hours from the onset of symptoms and he has been stable since. He probably cannot get beta-blockers due to relative bradycardia and underlying the chronic obstructive pulmonary disease (COPD). Blood pressure though is well controlled and I started him on lipid lowering medications last night even though he told me that he previously had fairly severe myalgias on Crestor. I tentatively plan on transferring patient to [facility] on Monday. I had a discussion with the patient again and he is certainly on par with this plan.
--- NOTE | 2016-10-15 11:18 | IPNPDOC ---
Subjective Date Seen The patient was seen on 10/15/16. Subjective Chief Complaint/HPI The patient is a 76-year-old male admitted with a reason for visit of Copd Exacerbation. Events since last encounter Patient's COPD exacerbation is resolving, however patient is awaiting transfer to [place] for cardiac catheterization. He reports no chest pain, chest pressure, or shortness of breath today. He is otherwise feeling well. Constitutional: Denies: Chills, Fever, Malaise Pulmonary: Reports: Cough, Denies: Dyspnea, Pleuritic Chest Pain Cardiovascular: Denies: Chest Pain, Palpitations Gastrointestinal: Denies: Abdominal Pain, Constipation, Diarrhea, Nausea, Vomiting Other systems 10 point review systems otherwise negative Objective Physical Examination General Exam: Positive: Alert, No Acute Distress ENT Exam: Positive: Mucous membr. moist/pink Chest Exam: Positive: Clear to auscultation, Normal air movement Heart Exam: Positive: Normal S1, Normal S2, Rate Normal Abdomen Exam: Positive: Normal bowel sounds, Soft, Negative: Tenderness Extremity Exam: Positive: Edema (1 mm pretibial pitting edema) Assessment /Plan Problems (1) Elevated troponin I level Status: Acute Response to Treatment: Worse Problem Specific Plan: Monitor Clinically Problem Text: Patient was initially admitted for COPD exacerbation, however due to shortness of breath and chest discomfort, he was evaluated for ACS. Dr. Goldstein felt that his elevated troponins and symptoms were consistent with ACS, and recommended transfer to [place] for cardiac catheterization. Patient has had resolution of his symptoms at this point, and is being medically maximized. - Awaiting transfer to [place] for cardiac catheterization - Patient on atorvastatin 80 mg daily, Plavix 75 mm grams daily, TALA inhibitor - Continued telemetry due to recent ACS (2) CKD (chronic kidney disease) stage 3, GFR 30-59 ml/min Status: Chronic Response to Treatment: Stable Problem Specific Plan: Monitor Clinically Problem Text: 2010, Scr 2 appears to be at baseline. (3) COPD exacerbation Status: Acute Response to Treatment: Improving Problem Specific Plan: Monitor Clinically Problem Text: Pt on prednisone 40 mg, Augmentin, resp status stable. Day 3 of 5. Plan/VTE VTE Prophylaxis Ordered?: Yes Disposition Plan for transfer to [place] for cardiac catheterization on Monday unless patient develops need for acute transfer. Dr. Goldstein to see if [place] will accept sooner. VS, I&O, 24H, Dilan Vital Signs/I&O Vital Signs Date Time Temp Pulse Resp B/P Pulse Ox O2 Delivery O2 Flow Rate FiO2 10/15/16 09:09 129/58 10/15/16 08:00 Room Air 10/15/16 08:00 97.0 67 18 96 10/13/16 09:00 2.0 I&O- Last 24 Hours up to 6 AM 10/15/16 05:59 Intake Total 2350 ml Output Total 660 ml Balance 1690 ml Laboratory Data 24H LABS Laboratory Tests 2 10/14/16 11:41: Bedside Glucose (Misc Panel) 256H 10/14/16 12:36: Creatine Kinase MB 10.0H, Creatine Kinase MB Relative Index 1.82, Total Creatine Kinase 547H, Troponin I 1.43H 10/14/16 17:54: Bedside Glucose (Misc Panel) 317H 10/14/16 20:03: Creatine Kinase MB 8.5H, Creatine Kinase MB Relative Index 1.96, Total Creatine Kinase 432H, Troponin I 1.43H 10/14/16 20:59: Bedside Glucose (Misc Panel) 276H 10/15/16 04:05: Anion Gap 9, White Blood Count 9.6, Red Blood Count 4.30, Hemoglobin 13.9L, Hematocrit 41.8L, Mean Corpuscular Volume 97.0H, Mean Corpuscular Hemoglobin 32.2, Mean Corpuscular Hemoglobin Concent 33.2, Red Cell Distribution Width 12.3 , Platelet Count 221, Neutrophils (%) (Auto) 73.5H, Lymphocytes (%) (Auto) 18.8L , Monocytes (%) (Auto) 5.1H, Eosinophils (%) (Auto) 0.5, Basophils (%) (Auto) 0.3, Neutrophils # (Auto) 7.1, Lymphocytes # (Auto) 1.8, Monocytes # (Auto) 0.5 , Eosinophils # (Auto) 0.0, Basophils # (Auto) 0.0, Blood Urea Nitrogen 46H, Creatinine 1.91H, Sodium Level 143, Potassium Level 4.4, Chloride Level 107, Carbon Dioxide Level 27, Calcium Level 8.9, Total Creatine Kinase 325H, Creatine Kinase MB 6.7H, Creatine Kinase MB Relative Index 2.06, Glomerular Filtration Rate 36.6L, Large Unclassified Cells # 0.2, Large Unclassified Cells % 1.7, Troponin I 1.43H 10/15/16 07:29: Bedside Glucose (Misc Panel) 196H CBC/BMP Laboratory Tests 10/15/16 04:05 Calcium Level 8.9, Total Creatine Kinase 325 H, Red Blood Count 4.30, Mean Corpuscular Volume 97.0 H, Mean Corpuscular Hemoglobin 32.2, Mean Corpuscular Hemoglobin Concent 33.2, Red Cell Distribution Width 12.3, Neutrophils (%) (Auto ) 73.5 H, Lymphocytes (%) (Auto) 18.8 L, Monocytes (%) (Auto) 5.1 H, Eosinophils (%) (Auto) 0.5, Basophils (%) (Auto) 0.3, Neutrophils # (Auto) 7.1, Lymphocytes # (Auto) 1.8, Monocytes # (Auto) 0.5, Eosinophils # (Auto) 0.0, Basophils # (Auto) 0.0 COLLETTE MORALEZ MD Oct 15, 2016 11:18
[2016-10-15] MEDS: ATORVASTATIN 20 MG TAB PO SCH (21:08)
[2016-10-16] VITALS (7 sets, daily range): BP systolic 128–148; BP diastolic 64–75
[2016-10-16] MEDS: IPRATROPIUM 0.5MG/ALBUTEROL 2.5MG INH SOL UD 3ML (DUONEB)(J7620) NEB SCH ×4 (02:00→20:00)
[2016-10-16 04:58] LABS: BASO % 0.5 % (0.0-1.0); EOS # 0.1 K/mm3 (0.0-0.50); EOS % 0.6 % (0.0-3.0); LARGE UNSTAINED CELL # 0.2 K/mm3 (0.0-0.4); LARGE UNSTAINED CELL % 1.8 % (0.0-4.0); LYMPH # 1.9 K/mm3 (1.5-4.5); LYMPH % 18.9 % (24.0-44.0); MEAN CORPUSCULAR HEMOGLOBIN 31.7 pg (27.0-33.0); MEAN CORPUSCULAR HGB CONC 32.7 g/dl (32.0-36.5); MEAN CORPUSCULAR VOLUME 96.8 fl (80.0-96.0); MONO # 0.6 K/mm3 (0.0-0.8); MONO % 6.3 % (0.0-5.0); NEUTROPHILS # 6.6 K/mm3 (1.8-7.7); PLATELET COUNT, AUTOMATED 236 k/mm3 (150-450); RED CELL DISTRIBUTION WIDTH 12.5 % (11.5-14.5); WHITE BLOOD COUNT 9.2 K/mm3 (4.0-10.0)
[2016-10-16 05:15] LABS: CALCIUM LEVEL 8.9 MG/DL (8.8-10.2); CREATININE FOR GFR 1.78 MG/DL (0.70-1.30); GLOMERULAR FILTRATION RATE 39.7 (>42); POTASSIUM SERUM 4.3 MEQ/L (3.5-5.1)
[2016-10-16] MEDS: HEPARIN SOD (PORCINE) 5000 UNITS/ML VIAL SC SCH ×3 (05:55→21:49)
--- NOTE | 2016-10-16 06:18 | IPNPDOC ---
Subjective Date Seen The patient was seen on 10/16/16. Subjective Chief Complaint/HPI The patient is a 76-year-old male admitted with a reason for visit of Copd Exacerbation. Events since last encounter Patient is feeling well today. He denies any chest pain, chest pressure, shortness breath. He was seen by Dr. Goldstein today, who was arranged for transfer to [place] tomorrow. The plan will be for a light breakfast, then nothing by mouth for a catheterization afternoon. Constitutional: Denies: Chills, Fever, Malaise Skin: Denies: Rash Pulmonary: Denies: Cough, Dyspnea Cardiovascular: Denies: Chest Pain, Orthopnea, Palpitations Gastrointestinal: Denies: Abdominal Pain, Constipation, Diarrhea, Nausea, Vomiting Genitourinary: Denies: Dysuria Psych: Reports: Mood Normal Other systems 10 point review systems otherwise negative Objective Physical Examination General Exam: Positive: Alert, No Acute Distress ENT Exam: Positive: Mucous membr. moist/pink Chest Exam: Positive: Clear to auscultation, Normal air movement Heart Exam: Positive: Normal S1, Normal S2, Rate Normal Abdomen Exam: Positive: Normal bowel sounds, Soft, Negative: Tenderness Extremity Exam: Positive: Edema (1 mm pretibial pitting edema) Assessment /Plan Problems (1) Elevated troponin I level Status: Acute Response to Treatment: Worse Problem Specific Plan: Monitor Clinically Problem Text: Patient was initially admitted for COPD exacerbation, however due to shortness of breath and chest discomfort, he was evaluated for ACS. Dr. Goldstein felt that his elevated troponins and symptoms were consistent with ACS, and recommended transfer to [place] for cardiac catheterization. Patient has had resolution of his symptoms at this point, and is being medically maximized. - Awaiting transfer to [place] for cardiac catheterization - Patient on atorvastatin 80 mg daily, Plavix 75 mm grams daily, TALA inhibitor - Continued telemetry due to recent ACS (2) CKD (chronic kidney disease) stage 3, GFR 30-59 ml/min Status: Chronic Response to Treatment: Stable Problem Specific Plan: Monitor Clinically Problem Text: 2010, Scr 2 appears to be at baseline. (3) COPD exacerbation Status: Acute Response to Treatment: Improving Problem Specific Plan: Monitor Clinically Problem Text: Pt on prednisone 40 mg, Augmentin, resp status stable. Day 4 of 5. Plan/VTE VTE Prophylaxis Ordered?: Yes Disposition Transfer to [place] for cardiac catheterization on the morning of 10/17/2016 VS[facility] Vital Signs/I&O Vital Signs Date Time Temp Pulse Resp B/P Pulse Ox O2 Delivery O2 Flow Rate FiO2 10/16/16 04:00 97.0 64 17 141/65 97 Room Air 10/13/16 09:00 2.0 I&O- Last 24 Hours up to 6 AM 10/16/16 05:59 Intake Total 1945 ml Balance 1945 ml Laboratory Data 24H LABS Laboratory Tests 2 10/15/16 07:29: Bedside Glucose (Misc Panel) 196H 10/15/16 11:47: Bedside Glucose (Misc Panel) 364H 10/15/16 12:50: Troponin I 0.75#H 10/15/16 17:25: Bedside Glucose (Misc Panel) 367H 10/15/16 20:58: Bedside Glucose (Misc Panel) 268H 10/16/16 04:17: Anion Gap 9, White Blood Count 9.2, Red Blood Count 4.24L, Hemoglobin 13.4L, Hematocrit 41.0L, Mean Corpuscular Volume 96.8H, Mean Corpuscular Hemoglobin 31.7, Mean Corpuscular Hemoglobin Concent 32.7, Red Cell Distribution Width 12.5 , Platelet Count 236, Neutrophils (%) (Auto) 72.0H, Lymphocytes (%) (Auto) 18.9L , Monocytes (%) (Auto) 6.3H, Eosinophils (%) (Auto) 0.6, Basophils (%) (Auto) 0.5, Neutrophils # (Auto) 6.6, Lymphocytes # (Auto) 1.9, Monocytes # (Auto) 0.6 , Eosinophils # (Auto) 0.1, Basophils # (Auto) 0.0, Blood Urea Nitrogen 42H, Creatinine 1.78H, Sodium Level 141, Potassium Level 4.3, Chloride Level 107, Carbon Dioxide Level 25, Calcium Level 8.9, Glomerular Filtration Rate 39.7L, Large Unclassified Cells # 0.2, Large Unclassified Cells % 1.8 CBC/BMP Laboratory Tests 10/16/16 04:17 Calcium Level 8.9, Red Blood Count 4.24 L, Mean Corpuscular Volume 96.8 H, Mean Corpuscular Hemoglobin 31.7, Mean Corpuscular Hemoglobin Concent 32.7, Red Cell Distribution Width 12.5, Neutrophils (%) (Auto) 72.0 H, Lymphocytes (%) (Auto) 18.9 L, Monocytes (%) (Auto) 6.3 H, Eosinophils (%) (Auto) 0.6, Basophils (%) ( Auto) 0.5, Neutrophils # (Auto) 6.6, Lymphocytes # (Auto) 1.9, Monocytes # (Auto ) 0.6, Eosinophils # (Auto) 0.1, Basophils # (Auto) 0.0 COLLETTE MORALEZ MD Oct 16, 2016 06:18
[2016-10-16] MEDS: FORMOTEROL FUMARATE 20 MCG/2 ML INHALATION SOLUTION (PERFOROMIST) INH SCH ×2 (07:13→19:56)
[2016-10-16] MEDS: BUDESONIDE 0.5 MG/2 ML INHALATION SUSPENSION INH SCH ×2 (07:14→19:56)
[2016-10-16] MEDS: HumaLOG INSULIN (NovoLOG) PER UNIT SC SCH ×4 (07:47→21:49)
[2016-10-16] MEDS: AUGMENTIN 875 MG TAB PO SCH ×2 (08:32→21:48)
[2016-10-16] MEDS: PANTOPRAZOLE 40MG TAB (PROTONIX) PO SCH (08:32)
[2016-10-16] MEDS: predniSONE 20 MG TAB PO SCH (08:32)
[2016-10-16] MEDS: LISINOPRIL 5 MG TAB PO SCH (08:33)
[2016-10-16] MEDS: CLOPIDOGREL 75 MG TAB PO SCH (08:33)
[2016-10-16] MEDS: SENOKOT S TAB PO SCH ×2 (08:33→21:48)
--- NOTE | 2016-10-16 10:34 | IPN ---
DATE: 10/16/2016 Mr. Blanco had an uneventful day and night. He denies any recurrence of chest discomfort and shortness of breath seems to be completely gone. Vital signs this morning: Blood pressure 147/68, heart rate is principally in 60s and occasionally 70s. He is afebrile. Saturation is 96% on room air. Weight is documented 99.7 kg. He is alert and oriented and appropriate. His jugular venous pressure is not up. Lungs are clear to auscultation today. I do not appreciate any wheezing at all. Heart exam reveals regular rhythm without gallop. There is a faint murmur at the aortic valve area. Abdomen is obese but soft. There is no peripheral edema. Neurologically, he is intact. LABORATORY: Basic metabolic panel reveals normal sodium and potassium, BUN is 42 and creatinine is 1.8 for GFR 40, glucose is 196. CBC: Hemoglobin 13.4, hematocrit 41, platelet count 236,000. ASSESSMENT AND PLAN: Mr. Blanco is a 76-year-old man who has no prior history of established obstructive coronary artery disease who presented with approximately 1-2 hours of chest discomfort associated with severe dyspnea. There were fairly subtle ischemic abnormalities on his initial ECG and he had troponin elevation that slightly exceeded 1. Overall though, I believe that the story is quite suggestive of acute coronary syndrome. He does have risk factors including longstanding history of type 2 diabetes. He also was not taking any lipid lowering medications. We had a discussion a couple days ago and he decided to pursue coronary angiogram. I do believe that this is the best option for the patient. The transfer and procedure is tentatively scheduled at [facility] for tomorrow.
[2016-10-16] MEDS: ATORVASTATIN 20 MG TAB PO SCH (21:48)
[2016-10-17] VITALS: BP 122/56
[2016-10-17] MEDS: IPRATROPIUM 0.5MG/ALBUTEROL 2.5MG INH SOL UD 3ML (DUONEB)(J7620) NEB SCH ×3 (02:00→13:38)
[2016-10-17 04:00] VITALS: BP 113/53
[2016-10-17 05:22] LABS: CALCIUM LEVEL 8.8 MG/DL (8.8-10.2); CREATININE FOR GFR 2.09 MG/DL (0.70-1.30); GLOMERULAR FILTRATION RATE 32.9 (>42); POTASSIUM SERUM 4.2 MEQ/L (3.5-5.1)
[2016-10-17 05:25] LABS: BASO % 0.5 % (0.0-1.0); EOS # 0.1 K/mm3 (0.0-0.50); EOS % 0.6 % (0.0-3.0); LARGE UNSTAINED CELL # 0.2 K/mm3 (0.0-0.4); LARGE UNSTAINED CELL % 1.8 % (0.0-4.0); LYMPH # 2.5 K/mm3 (1.5-4.5); LYMPH % 21.8 % (24.0-44.0); MEAN CORPUSCULAR HEMOGLOBIN 31.6 pg (27.0-33.0); MEAN CORPUSCULAR HGB CONC 32.4 g/dl (32.0-36.5); MEAN CORPUSCULAR VOLUME 97.3 fl (80.0-96.0); MONO # 0.7 K/mm3 (0.0-0.8); MONO % 6.3 % (0.0-5.0); NEUTROPHILS # 7.3 K/mm3 (1.8-7.7); PLATELET COUNT, AUTOMATED 230 k/mm3 (150-450); RED CELL DISTRIBUTION WIDTH 12.6 % (11.5-14.5); WHITE BLOOD COUNT 10.6 K/mm3 (4.0-10.0)
[2016-10-17] MEDS: HEPARIN SOD (PORCINE) 5000 UNITS/ML VIAL SC SCH (06:12)
[2016-10-17] MEDS: HumaLOG INSULIN (NovoLOG) PER UNIT SC SCH ×2 (07:30→11:44)
[2016-10-17] MEDS: BUDESONIDE 0.5 MG/2 ML INHALATION SUSPENSION INH SCH (07:31)
[2016-10-17] MEDS: FORMOTEROL FUMARATE 20 MCG/2 ML INHALATION SOLUTION (PERFOROMIST) INH SCH (07:31)
--- NOTE | 2016-10-17 07:41 | IPN ---
DATE: 10/17/2016 Mr. Blanco had a good night. He feels comfortable and did not have any recurrence of symptoms. Blood pressure 113/53. Heart rate is 60s. He is afebrile. Saturation 94% on room air. His fluid balance is approximately equal. Weight 99.9 kg. Alert, oriented and appropriate. Jugular venous pulse (JVP) is not up. Lungs are clear. Heart exam regular rhythm. No gallop or rub. Very faint murmur at the aortic valve area. No edema. Laboratory-monte, his hemoglobin is 13.3, hematocrit 41 and platelet count 230,000. Basic metabolic panel: potassium 4.2, creatinine 2.0, BUN 47 and glucose 201. ASSESSMENT/PLAN: Mr. Blanco is a 76-year-old man who presented with fairly sudden onset of chest discomfort and shortness of breath and eventually had evidence for troponin elevation. There were subtle repolarization abnormalities on electrocardiogram (EKG) in inferior leads. The overall scenario fits best with non-STEMI. I am doubtful that this could have been pulmonary embolism because with elevated troponin it would indicate a fairly massive event and he improved spontaneously without any intervention and was not profoundly hypoxic, currently saturating almost 100% on room air. I spoke with the patient about further management and he will be transferred to [facility] in [place] later today. I will see him on an outpatient basis. SUSAN
[2016-10-17 08:00] VITALS: BP 148/65
[2016-10-17] MEDS: SENOKOT S TAB PO SCH (09:00)
[2016-10-17] MEDS: CLOPIDOGREL 75 MG TAB PO SCH (09:00)
[2016-10-17] MEDS: PANTOPRAZOLE 40MG TAB (PROTONIX) PO SCH (09:00)
[2016-10-17] MEDS: predniSONE 20 MG TAB PO SCH (09:00)
[2016-10-17] MEDS: LISINOPRIL 5 MG TAB PO SCH (09:00)
[2016-10-17] MEDS: AUGMENTIN 875 MG TAB PO SCH (09:00)
[2016-10-17 12:00] VITALS: BP 126/62
--- NOTE | 2016-10-20 12:17 | DS.PDOC ---
Discharge Summary General Date of Admission Oct 14, 2016 at 09:55 Date of Discharge 10/17/16 Primary Care Physician: COLLETTE ALDANA MD Attending Physician: COLLETTE ALDANA MD Specialist/Consultants Involve: Jaquelin Goldstein MD Discharge Summary PROCEDURES PERFORMED DURING STAY: Echocardiogram Admission diagnoses: 1. COPD exacerbation 2. Acute bronchitis 3. GERD exacerbation 4. Diabetes, [id number] 5. Stage III chronic kidney disease Discharge diagnoses: 1. Non-ST elevation myocardial infarction 2. COPD exacerbation 3. GERD 4. Diabetes, [id number] 5. Stage III chronic kidney disease COMPLICATIONS/CHIEF COMPLAINT: Copd Exacerbation. HISTORY OF PRESENT ILLNESS/Hospital Course: This is a 76-year-old patient of Dr. Collette Aldana, who is admitted 10/13/2016 for acute shortness of breath and chest tightness. He was hypertensive on presentation with a blood pressure 180/90, and tachycardic with a pulse of 115. He was treated with sublingual nitroglycerin, nebulizers, and pain control, then admitted for presumed COPD exacerbation. He was initially started on Augmentin and prednisone for COPD exacerbation. However, his troponins sb steadily, and peaked at 1.43 on 10/14/2016, and then began down trending. Initial EKG showed atrial fibrillation and anterior septal myocardial infarction of indeterminate age. Echo showed mild left ventricular hypertrophy with preserved systolic function, mildly dilated left atrium, mild pulmonary hypertension, and left atrial pressures in the upper limit of normal. He was evaluated by Dr. Goldstein, who felt that his symptoms and elevated troponins undoubtably represented a non-ST elevation myocardial infarction. He was transferred to [place] for cardiac catheterization and further evaluation. On day of discharge, the patient's stated that he was feeling well, his breathing had returned to baseline, and he denied any chest pain or chest pressure. DISCHARGE MEDICATIONS: Please see below. ALLERGIES: Please see below. PHYSICAL EXAMINATION ON DISCHARGE: VITAL SIGNS: Please see below. GENERAL: Obese, alert, comfortable, no acute distress HEENT: Sclerae clear, moist mucous membranes, no thyromegaly, no JVD NECK: Supple, no adenopathy CARDIOVASCULAR EXAMINATION: Regular rate and rhythm, S1, S2, 1/6 systolic ejection murmur RESPIRATORY EXAMINATION: Clear bilaterally to auscultation, no wheezes, no rales , no rhonchi, normal work of breathing, decreased breath sounds throughout ABDOMINAL EXAMINATION: Obese, soft, nontender, + bowel sounds EXTREMITIES: No edema, 2+ peripheral pulses bilaterally, no cyanosis or clubbing SKIN: Warm and dry, no rashes, no lesions NEUROLOGICAL EXAMINATION: Alert and oriented 3 PSYCHIATRIC EXAMINATION: Normal mood and affect LABORATORY DATA: Please see below. IMAGING: Echocardiogram-normal left ventricular function, mild left ventricular hypertrophy, mild pulmonary hypertension, grade [address] chest: Bronchitis, cardiomegaly, sliding hiatal hernia Chest x-ray: Atelectasis in the lingula, no interval change PROGNOSIS: Good ACTIVITY: As tolerated. DIET: Cardiac, carb controlled DISCHARGE PLAN: Transfer to [place] for cardiac catheterization DISPOSITION: er To Acute Hosp. DISCHARGE INSTRUCTIONS: 1. Follow-up after cardiac catheterization 2. Continue Plavix or other anticoagulation as directed by cardiology 3. Follow up with her primary doctor to discuss dietary modifications to reduce cardiac risk ITEMS TO FOLLOWUP ON ON OUTPATIENT: 1. Follow-up COPD 2. Follow-up cardiac catheterization results 3. Review and maximized medical therapy for cardiac risks, and discuss dietary referral DISCHARGE CONDITION: Stable. TIME SPENT ON DISCHARGE: Greater than 30 minutes. Collette Aldana MD Vital Signs/I&Os Vital Signs Date Time Temp Pulse Resp B/P Pulse Ox O2 Delivery O2 Flow Rate FiO2 10/17/16 12:00 97.5 54 26 126/62 96 Room Air Discharge Medications Scheduled Ergocalciferol (Vitamin D) 50,000 Unit Cap 50,000 UNIT PO 1XWK (Reported) Lisinopril (Lisinopril) 5 Mg Tab 5 MG PO QHS (Reported) Metformin Hydrochloride (Metformin HCl) 1,000 Mg Tab 1,000 MG PO BID (Reported ) Quinapril Hcl (Quinapril HCl) 40 Mg Tab 40 MG PO QHS (Reported) Salmeterol/Fluticasone (Advair Diskus 250-50 Mcg/Dose) 14 Puff/Inhaler Aerp 1 PUFF INH BID (Reported) Sitagliptin Phosphate (Januvia) 100 Mg Tab 100 MG PO DAILY (Reported) Scheduled PRN Albuterol Sulfate (Proair Hfa) 108 Mcg/Act Aer 2 PUFF INH Q4H PRN PRN SHORTNESS OF BREATH (Reported) Allergies Coded Allergies: Aspirin (Verified Allergy, Unknown, 10/12/16) COLLETTE ALDANA MD Oct 20, 2016 12:16
== END 2016-10-17 14:02 | disposition short-term general hospital (02) | DRG 281 ==
LOC: EDBD 22:12 → M ED 10-13 00:23 → M ED INP 10-13 00:37 → M MSPAV 10-13 02:04 → M ICU 10-13 12:33 → OBSVTOIN 10-14 09:55
PROVIDERS: ADMIT Internal Medicine Nephrology; ATTEND Family Medicine
DX: I21.4 Non-ST elevation (NSTEMI) myocardial infarction (principal); J44.0 Chronic obstructive pulmonary disease with (acute) lower respiratory infection; J44.1 Chronic obstructive pulmonary disease with (acute) exacerbation; J20.9 Acute bronchitis, unspecified; E11.40 Type 2 diabetes mellitus with diabetic neuropathy, unspecified; K21.9 Gastro-esophageal reflux disease without esophagitis; I12.9 Hypertensive chronic kidney disease with stage 1 through stage 4 chronic kidney disease, or unspecified chronic kidney disease; K44.9 Diaphragmatic hernia without obstruction or gangrene; E66.9 Obesity, unspecified; E55.9 Vitamin D deficiency, unspecified; N18.3 Chronic kidney disease, stage 3 (moderate); Z66 Do not resuscitate; Z87.891 Personal history of nicotine dependence; Z88.6 Allergy status to analgesic agent; Z79.84 Long term (current) use of oral hypoglycemic drugs; Z79.51 Long term (current) use of inhaled steroids; Z79.899 Other long term (current) drug therapy

== ENCOUNTER → 2016-10-24 | Outpatient (REF) | payer MEDICARE ==
[~2016-10-24] MED LIST: ADV250INH INH; JANU100T PO; LISI-542 PO; METF1000 PO; PROA1AER INH; QUIN40TA5 PO; VITA50003 PO
== END ==
LOC: M SFHCPLAZ 12:49
PROVIDERS: ATTEND Family Medicine
DX: I21.4 Non-ST elevation (NSTEMI) myocardial infarction (principal)

== ENCOUNTER → 2016-11-30 | Outpatient (REF) | payer MEDICARE | LOC: M SFHCPLAZ 09:02 | PROVIDERS: ATTEND Family Medicine | DX: E11.9 Type 2 diabetes mellitus without complications (principal); Z80.42 Family history of malignant neoplasm of prostate; E55.9 Vitamin D deficiency, unspecified; E66.9 Obesity, unspecified | CPT/HCPCS: 36415; 82306; 83036; G0103 ==

== ENCOUNTER 2016-12-02 09:05 | Outpatient (RCR) | payer MEDICARE | END 2016-12-07 | LOC: M CR 09:05 | PROVIDERS: ATTEND Internal Medicine Cardiovascular Disease | DX: Z51.89 Encounter for other specified aftercare (principal); I25.10 Atherosclerotic heart disease of native coronary artery without angina pectoris; Z98.61 Coronary angioplasty status ==

== ENCOUNTER → 2017-01-06 | Outpatient (RCR) | payer MEDICARE ==
[~2017-01-06] MED LIST changes: -METF1000 PO; +METF10004 PO; -PROA1AER INH; +PROAAER10 INH; +QUIN1TAB15 PO; -QUIN40TA5 PO; +VITA1CAP40 PO; -VITA50003 PO
== END ==
LOC: M CR 12-08 08:56
PROVIDERS: ATTEND Internal Medicine Cardiovascular Disease
DX: Z51.89 Encounter for other specified aftercare (principal); I25.10 Atherosclerotic heart disease of native coronary artery without angina pectoris; Z98.61 Coronary angioplasty status

== ENCOUNTER 2017-01-30 09:43 | Outpatient (RCR) | payer MEDICARE | END 2017-02-06 | LOC: M CR 09:43 | PROVIDERS: ATTEND Internal Medicine Cardiovascular Disease | DX: Z48.812 Encounter for surgical aftercare following surgery on the circulatory system (principal); I25.10 Atherosclerotic heart disease of native coronary artery without angina pectoris; Z98.61 Coronary angioplasty status ==

== ENCOUNTER 2017-02-01 14:28 | Outpatient (RCR) | payer SELFPAY | END 2017-02-06 | LOC: M CR 14:28 | PROVIDERS: ATTEND Internal Medicine Cardiovascular Disease | DX: Z48.812 Encounter for surgical aftercare following surgery on the circulatory system (principal); Z98.61 Coronary angioplasty status; I25.10 Atherosclerotic heart disease of native coronary artery without angina pectoris ==

== ENCOUNTER → 2017-11-28 | Outpatient (REF) | payer MEDICARE ==
[2017-11-28 19:55] LABS: ANION GAP 9 MEQ/L (8-16); BLOOD UREA NITROGEN 40 MG/DL (7-18); CALCIUM LEVEL 10.1 MG/DL (8.8-10.2); CARBON DIOXIDE LEVEL 25 MEQ/L (21-32); CHLORIDE LEVEL 110 MEQ/L (98-107); CHOLESTEROL LEVEL 194 MG/DL (<200); CHOLESTEROL RISK RATIO 4.311 (<5); CREATININE FOR GFR 1.85 MG/DL (0.70-1.30); GLOMERULAR FILTRATION RATE 37.8 (>42); GLUCOSE, FASTING 113 MG/DL (70-100); HDL CHOLESTEROL 45 MG/DL (>40); LDL CHOLESTEROL 75.8 MG/DL (<100); NON-HDL-C 149 MG/DL; POTASSIUM SERUM 4.8 MEQ/L (3.5-5.1); PSA SCREENING 4.25 NG/ML (< 4.0); SODIUM LEVEL 144 MEQ/L (136-145); TRIGLYCERIDES LEVEL 366 MG/DL (<150)
[2017-11-28 20:14] LABS: ESTIMATED AVERAGE GLUCOSE 146 MG/DL (60-110); HEMOGLOBIN A1c 6.7 %
[2017-11-28 20:17] LABS: CREATININE, URINE 74.8 MG/DL; MAU/CREAT RATIO 323.5 MCG/MG (0.0-30.0)
== END ==
LOC: M SFHCPLAZ 15:04
DX: E11.9 Type 2 diabetes mellitus without complications (principal); Z12.5 Encounter for screening for malignant neoplasm of prostate
CPT/HCPCS: 83036

== ENCOUNTER → 2018-01-16 | Outpatient (REF) | payer MEDICARE | LOC: M SMT 13:12 | DX: R97.20 Elevated prostate specific antigen [PSA] (principal); Z79.899 Other long term (current) drug therapy | CPT/HCPCS: 87086 ==

== ENCOUNTER 2018-03-20 06:17 | Day surgery (SDC) | payer MEDICARE ==
[2018-03-20] MEDS: NS 1,000 ML IV (07:17)
[2018-03-20] MEDS ORDERED: PROPOFOL 200 MG/20 ML VIAL As Ordered ×7 (07:21→07:22)
== END 2018-03-20 08:40 | disposition home or self-care (01) ==
LOC: M OPP 08:40
DX: Z12.11 Encounter for screening for malignant neoplasm of colon (principal); Z86.010 Personal history of colon polyps; D12.5 Benign neoplasm of sigmoid colon; D12.2 Benign neoplasm of ascending colon; K64.8 Other hemorrhoids; Z95.5 Presence of coronary angioplasty implant and graft; I25.10 Atherosclerotic heart disease of native coronary artery without angina pectoris; I25.2 Old myocardial infarction; I12.9 Hypertensive chronic kidney disease with stage 1 through stage 4 chronic kidney disease, or unspecified chronic kidney disease; E11.9 Type 2 diabetes mellitus without complications; N18.9 Chronic kidney disease, unspecified; Z87.891 Personal history of nicotine dependence; Z88.8 Allergy status to other drugs, medicaments and biological substances; Z79.84 Long term (current) use of oral hypoglycemic drugs; Z79.899 Other long term (current) drug therapy; Z80.42 Family history of malignant neoplasm of prostate
CPT/HCPCS: 45380

== ENCOUNTER → 2018-05-21 | Outpatient (CLI) | payer MEDICARE | LOC: M WUC 14:45 | DX: J84.112 Idiopathic pulmonary fibrosis (principal); S20.20XA Contusion of thorax, unspecified, initial encounter; X58.XXXA Exposure to other specified factors, initial encounter; Y92.9 Unspecified place or not applicable | CPT/HCPCS: 71046 ==

== ENCOUNTER → 2018-08-07 | Outpatient (CLI) | payer MEDICARE ==
[~2018-08-07] MED LIST changes: +CARV3.12 PO; +CLOP75TA2 PO; -QUIN1TAB15 PO; +QUIN1TAB4 PO; -VITA1CAP40 PO; +VITA50005 PO
[2018-08-08 14:53] LABS: PSA FREE 1.46 ng/mL; PSA TOTAL 4.3 ng/mL (0.0-4.0)
== END ==
LOC: M SMT 11:30
PROVIDERS: ATTEND Nurse Practitioner Family
DX: R97.20 Elevated prostate specific antigen [PSA] (principal)

== ENCOUNTER → 2019-02-06 | Outpatient (REF) | payer MEDICARE ==
[2019-02-06 16:00] LABS: CALCIUM LEVEL 9.5 MG/DL (8.8-10.2); CHOLESTEROL RISK RATIO 4.872 (<5); CREATININE FOR GFR 2.12 MG/DL (0.70-1.30); GLOMERULAR FILTRATION RATE 32.2 (>42); POTASSIUM SERUM 5.5 MEQ/L (3.5-5.1)
[2019-02-06 16:35] LABS: CREATININE, URINE 72.6 MG/DL; MAU/CREAT RATIO 347.1 MCG/MG (0.0-30.0)
[2019-02-08 14:07] LABS: PSA % FREE 31.6 % (.); PSA FREE 1.36 ng/mL; PSA TOTAL 4.3 ng/mL (0.0-4.0)
== END ==
LOC: M SFHCPLAZ 13:19
PROVIDERS: ATTEND Family Medicine
DX: E11.40 Type 2 diabetes mellitus with diabetic neuropathy, unspecified (principal); I25.2 Old myocardial infarction; N18.3 Chronic kidney disease, stage 3 (moderate); R97.20 Elevated prostate specific antigen [PSA]

== ENCOUNTER 2019-03-28 06:39 | Day surgery (SDC) | payer MEDICARE ==
[~2019-03-28] VITALS: Ht 172.7 cm; Wt 95.3 kg
[~2019-03-28 06:39] MED LIST changes: +CENT1TAB2 PO; +FLUTISP; +PRAV40TA2 PO
[2019-03-28] MEDS ORDERED: DUOVISC (0.50ML VISCOAT/0.55ML PROVISC) OPHTH KIT As Ordered ONE (06:43)
[2019-03-28] MEDS ORDERED: POVIDONE-IODINE 5% OPHTH PREP SOL 30ML As Ordered ONE (06:43)
[2019-03-28] MEDS ORDERED: BALANCED SALT IRRIGATION SOLUTION 500ML BAG (FOR OR EYE MACHINE) As Ordered ONE (06:43)
[2019-03-28] MEDS ORDERED: CEFUROXIME 1MG/0.1ML INTRACAMERAL INJ As Ordered ONE (06:46)
[2019-03-28] MEDS ORDERED: TROPICAMIDE 1% OPHTH SOLN 2ML OS ONE (07:00)
[2019-03-28] MEDS ORDERED: PROPARACAINE 0.5% OPHTH SOL 15ML OS ONE (07:00)
[2019-03-28] MEDS ORDERED: PHENYLEPHRINE 2.5% OPHTH SOL 2ML OS ONE (07:00)
[2019-03-28] MEDS ORDERED: OFLOXACIN 0.3 % (OCUFLOX) OPTH SOL 5ML OS ONE (07:00)
[2019-03-28] MEDS ORDERED: MIDAZOLAM INJ 2 MG/2 ML VIAL (J2250) As Ordered ONE (07:14)
[2019-03-28] MEDS ORDERED: fentaNYL 100 MCG/2 ML INJECTION (J3010) As Ordered ONE (07:14)
[2019-03-28] MEDS ORDERED: LIDOCAINE 1% SDV 5 ML VIAL As Ordered ONE (07:31)
[2019-03-28 10:10] VITALS: BP 119/56
--- NOTE | 2019-03-30 20:39 | RO ---
DATE OF PROCEDURE: 03/28/2019 PREOPERATIVE DIAGNOSES: 1. Visually significant nuclear sclerotic cataract left eye. 2. Astigmatism left eye. POSTOPERATIVE DIAGNOSES: 1. Visually significant nuclear sclerotic cataract left eye. 2. Astigmatism left eye. PROCEDURE: 1. Cataract extraction with use of phacoemulsification, and placement of intraocular lens, AU00T0, 17.5 D , left eye, with use of femtosecond laser. 2. Placement of limbal relaxing incisions left eye. SURGEON: Bebeto Jain DO [employer] OPERATOR: None. ANESTHESIA: Local with monitored anesthesia care (MAC). COMPLICATIONS: None POSTOPERATIVE CONDITION: Stable INDICATIONS FOR SURGERY: 1. Blurred vision affecting patients activities of daily living. DESCRIPTION OF PROCEDURE: The patient was seen in the preoperative area and properly identified. The correct operative eye was identified and marked. The patient received topical anesthetic, antibiotics, and topical dilating drops. The patient was then transferred to the laser room. The patient was positioned under the laser. A timeout was performed. The laser was applied. A 4.8 mm capsulotomy, fragmentation, and limbal relaxing incisions were created. The patient tolerated the procedure well and was transferred to the operating room. The correct side was re-identified and a timeout was performed. The eye was prepped and draped in a sterile fashion. The eyelids were isolated with Tegaderm tape and the lids were held open with an adjustable speculum. A 1.0 mm paracentesis incision was made. Intraocular preservative free Shugarcaine was then injected into the anterior chamber. Viscoelastic was then injected into the anterior chamber through the paracentesis. Using a 2.4 mm sharp-tipped keratome, the anterior chamber was entered via a temporal clear cornea incision. Utrata forceps were used to removed the free floating capsulotomy. Hydrodissection was performed with BSS on a blunt cannula until the nucleus was able to rotate freely. The crystalline lens was phacoemulsified and aspirated. Irrigation/aspiration was used to remove the cortical material Cohesive viscoelastic was placed into the capsular bag to deepen it. The implant was placed into the capsular bag and allowed to unfold. Placement was confirmed by visualizing the anterior capsulorrhexis. Irrigation/aspiration was used to remove the viscoelastic. The clear corneal incision was hydrated with BSS on a blunt cannula. The lens was well positioned. The incisions were then tested for leaks and found to be negative. The eye was then palpated for appropriate pressure and adjusted accordingly with BSS. The eyelid speculum was then carefully removed. A shield was placed over the eye. The patient tolerated the procedure well and was discharge to the recovery unit in a stable condition.
== END 2019-03-28 11:00 | disposition home or self-care (01) ==
LOC: M SDC 06:39
PROVIDERS: ATTEND Ophthalmology
DX: H25.12 Age-related nuclear cataract, left eye (principal); H52.202 Unspecified astigmatism, left eye; I25.10 Atherosclerotic heart disease of native coronary artery without angina pectoris; I10 Essential (primary) hypertension; I25.2 Old myocardial infarction; E11.9 Type 2 diabetes mellitus without complications; E78.5 Hyperlipidemia, unspecified; N18.9 Chronic kidney disease, unspecified; Z79.02 Long term (current) use of antithrombotics/antiplatelets; Z79.4 Long term (current) use of insulin; Z87.891 Personal history of nicotine dependence; Z79.899 Other long term (current) drug therapy
CPT/HCPCS: 65772; 66984; J2250; J3010; V2632

== ENCOUNTER → 2019-09-09 | Outpatient (REF) | payer MEDICARE ==
[2019-09-09 18:10] LABS: BASO % 0.4 % (0.0-1.0); EOS # 0.3 10^3/uL (0.0-0.5); EOS % 4.5 % (0.0-3.0); HEMATOCRIT 47.2 % (42.0-52.0); HEMOGLOBIN 15.4 g/dl (13.5-17.5); LYMPH # 1.8 10^3/uL (1.5-5.0); LYMPH % 26.5 % (24.0-44.0); MEAN CORPUSCULAR HEMOGLOBIN 32.5 pg (27.0-33.0); MEAN CORPUSCULAR HGB CONC 32.6 g/dl (32.0-36.5); MEAN CORPUSCULAR VOLUME 99.6 fl (80.0-96.0); MONO # 0.6 10^3/uL (0.0-0.8); MONO % 9.3 % (0.0-5.0); NEUTROPHILS % 58.3 % (36.0-66.0); PLATELET COUNT, AUTOMATED 194 10^3/uL (150-450); RED BLOOD COUNT 4.74 10^6/uL (4.30-6.10); WHITE BLOOD COUNT 6.9 10^3/uL (4.0-10.0)
[2019-09-09 19:06] LABS: ALBUMIN 4.1 GM/DL (3.2-5.2); BILIRUBIN,TOTAL 0.4 MG/DL (0.2-1.0); CALCIUM LEVEL 9.8 MG/DL (8.8-10.2); CHOLESTEROL RISK RATIO 4.568 (<5); CREATININE FOR GFR 2.04 MG/DL (0.70-1.30); GLOMERULAR FILTRATION RATE 33.7 (>42); POTASSIUM SERUM 6.3 MEQ/L (3.5-5.1); TOTAL 25(OH) VITAMIN D 72.6 NG/ML (30.0-100.0); TOTAL PROTEIN 7.3 GM/DL (6.4-8.2)
[2019-09-09 19:28] LABS: HEMOGLOBIN A1c 6.5 %
== END ==
LOC: M SFHCLERA 11:39
PROVIDERS: ATTEND Nurse Practitioner Family
DX: I12.9 Hypertensive chronic kidney disease with stage 1 through stage 4 chronic kidney disease, or unspecified chronic kidney disease (principal); E55.9 Vitamin D deficiency, unspecified; N18.3 Chronic kidney disease, stage 3 (moderate); E11.22 Type 2 diabetes mellitus with diabetic chronic kidney disease; E78.2 Mixed hyperlipidemia

== ENCOUNTER → 2019-09-13 | Outpatient (REF) | payer MEDICARE | LOC: M SFHCLERA 09:00 | PROVIDERS: ATTEND Nurse Practitioner Family | DX: E87.5 Hyperkalemia (principal) ==

== ENCOUNTER → 2019-09-18 | Outpatient (REF) | payer MEDICARE ==
[2019-09-18 12:19] LABS: CALCIUM LEVEL 9.9 MG/DL (8.8-10.2); CREATININE FOR GFR 1.83 MG/DL (0.70-1.30); GLOMERULAR FILTRATION RATE 38.1 (>35); POTASSIUM SERUM 5.6 MEQ/L (3.5-5.1)
== END ==
LOC: M SFHCLERA 10:03
PROVIDERS: ATTEND Nurse Practitioner Family
DX: E87.5 Hyperkalemia (principal)